=== PATIENT | female | born 1980 ===

== ENCOUNTER → 2023-06-16 | Outpatient (CLI) | payer OTHER | END | disposition home or self-care (01) | LOC: NST 19:02 | PROVIDERS: ATTEND Obstetrics & Gynecology | DX: Z34.83 Encounter for supervision of other normal pregnancy, third trimester (principal) ==

== ENCOUNTER 2023-06-18 12:45 | Inpatient (IN) | payer OTHER ==
[~2023-06-18] VITALS: Ht 167.6 cm; Wt 69.4 kg
[2023-07-05] MEDS ORDERED: OXYTOCIN 500 ML IV ONE (08:15)
[2023-07-05 08:53] LABS: HEMATOCRIT 39.2 % (36.0-45.00); HEMOGLOBIN 13.5 g/dL (12.0-15.00); MEAN CELL VOLUME 87.9 fL (80.00-100.00); MEAN CORPUSCULAR HEMOGLOBIN 30.2 pg (27.00-32.0); MEAN CORPUSCULAR HGB CONC 34.3 g/dl (32.0-36.0); PLATELET COUNT 220 K/uL (150-450); RED BLOOD COUNT 4.46 M/uL (4.00-6.00); RED CELL DISTRIBUTION WIDTH 14.1 % (11.5-14.5)
[2023-07-05] MEDS ORDERED: PRENATAL + DHA1 EACH PO (08:57)
[2023-07-05] MEDS ORDERED: PROBIOTIC1 EAC4 PO (08:57)
[2023-07-05] MEDS ORDERED: CHLORHEXIDINE GLUCONATE 120 ML BOTTLE TOP ONE (09:01)
[2023-07-05] MEDS ORDERED: OXYTOCIN 20 UNITS/1000ML RL PIGGYBAG IV ONE (09:02)
[2023-07-05] MEDS ORDERED: ERYTHROMYCIN BASE 1 GM TUBE OP ONE (09:02)
[2023-07-05] MEDS ORDERED: LIDOCAINE HCL 100 MG/10ML VIAL ONE (09:02)
[2023-07-05 09:23] LABS: INR < 0.93; PARTIAL THROMBOPLASTIN TIME 25.6 SECONDS (22.0-34.0); PROTHROMBIN TIME 9.3 SECONDS (9.0-11.5)
[2023-07-05 09:48] LABS: BILIRUBIN TOTAL 0.49 mg/dL (0.3-1.2); CALCIUM 9.2 mg/dL (8.5-10.1); CREATININE SERUM 0.65 mg/dL (0.55-1.02); GFR 99.96; GLOBULINA 3.5 G/DL (2.4-3.5); POTASSIUM 4.77 mEq/L (3.5-5.1); TOTAL PROTEIN 6.5 gm/dL (6.4-8.2)
[2023-07-05] MEDS ORDERED: CHLORHEXIDINE GLUCONATE 120 ML BOTTLE TP SCH (10:30)
[2023-07-05] MEDS ORDERED: ERYTHROMYCIN BASE 1 GM TUBE OP SCH (10:30)
[2023-07-05] MEDS ORDERED: IBUprofen 400 MG TABLET PO PRN (10:30)
[2023-07-05] MEDS ORDERED: LIDOCAINE HCL 1% 200MG/20ML VIAL IJ SCH (10:30)
[2023-07-05] MEDS ORDERED: OXYTOCIN 1,000 ML IV ONE (10:30)
[2023-07-06 06:55] LABS: HEMATOCRIT 34.4 % (36.0-45.00); MEAN CELL VOLUME 89.2 fL (80.00-100.00); MEAN CORPUSCULAR HEMOGLOBIN 31.1 pg (27.00-32.0); MEAN CORPUSCULAR HGB CONC 34.9 g/dl (32.0-36.0); PLATELET COUNT 175 K/uL (150-450); RED BLOOD COUNT 3.86 M/uL (4.00-6.00); RED CELL DISTRIBUTION WIDTH 13.8 % (11.5-14.5)
== END 2023-07-07 10:16 | disposition home or self-care (01) | DRG 807 ==
LOC: OB/GYN 07-05 06:25 → LDR 07-05 06:25 → OB/GYN 07-05 11:27
PROVIDERS: ADMIT Obstetrics & Gynecology; ATTEND Obstetrics & Gynecology
PROC: 10E0XZZ Delivery of Products of Conception, External Approach (ICD-10-PCS; principal; 2023-07-05)
PROC: 0KQM0ZZ Repair Perineum Muscle, Open Approach (ICD-10-PCS; 2023-07-05)
PROC: 4A1HXCZ Monitoring of Products of Conception, Cardiac Rate, External Approach (ICD-10-PCS; 2023-07-05)
DX: O70.0 First degree perineal laceration during delivery (principal); Z37.0 Single live birth; Z3A.39 39 weeks gestation of pregnancy; Z20.822 Contact with and (suspected) exposure to COVID-19